=== PATIENT | female | born 1990 | race Caucasian/White ===

== ENCOUNTER 2019-09-04 21:18 | Emergency (ER) | payer OTHER ==
[~2019-09-04] VITALS: Ht 167.6 cm; Wt 111.1 kg
[2019-09-04] MEDS ORDERED: AUGMENTIN 875-1 EACH PO (22:13)
[2019-09-04] MEDS ORDERED: TYLENOL WITH CO1 TA1 PO (22:13)
[2019-09-04 22:25] VITALS: BP 147/86
== END 2019-09-04 22:26 | disposition home or self-care (01) ==
LOC: M.ERS 21:18
DX: H66.91 Otitis media, unspecified, right ear (principal); J32.0 Chronic maxillary sinusitis